=== PATIENT | female | born 1995 | race Caucasian/White ===

== ENCOUNTER 2020-06-29 12:13 | Emergency (ER) | payer MEDICAID, SELFPAY ==
--- NOTE | 2020-06-29 12:28 | W.ED.SKABFB ---
HPI - Skin/Abscess/Foreign Bdy General: Stated complaint: rash Time Seen by Provider: 06/29/20 12:22 Source: patient Mode of arrival: ambulatory Limitations: no limitations History of Present Illness: HPI narrative: 24-year-old female states she has had a rash over the last 2 days has rash to both arms. Other family members have the rash as well. States 3.. She denies any pain. MD complaint: rash Onset (ago): day(s) Associated symptoms: Deny chills, fever(s), nausea or vomiting Review of Systems Const: Denies: fever(s), chills, body aches or change in appetite Eyes: Denies: blurry vision or eye discomfort ENMT: Denies: throat pain or dental pain Card: Denies: chest pain Resp: Denies: dyspnea GI: Denies: abdominal pain, nausea, vomiting or diarrhea : Denies: dysuria Musc: Denies: neck pain or back pain Skin/Breast: Reports: rash Neuro: Denies: headache(s) Psych: Denies: depression Logan/Lymph: Denies: easy bruising All/Imm: Denies: urticaria Physical Exam Const: COMMON NORMALS: no acute distress HENMT: COMMON NORMALS: normocephalic and atraumatic HEAD & SCALP: normocephalic and atraumatic Eye: COMMON NORMALS: Equal, round and reactive pupils present PUPIL: Yes Equal, round and reactive pupils present Neck/C-Spine: COMMON NORMALS: supple Chest: COMMONS NORMALS: normal inspection of the chest Resp: COMMON NORMALS: normal respiratory effort Extremity: COMMON NORMALS: normal to inspection Psych: COMMON NORMALS: mental status grossly normal Skin: NARRATIVE SKIN EXAM: Pruritic rash to arms MDM - Skin/Abscess/Foreign Bdy MDM Narrative: Medical decision making narrative: Patient presents here with a rash will place on permethrin Discharge Plan Discharge Patient Disposition: Home Clinical Impression: Rash Condition: Stable Prescriptions: New permethrin 5 % cream 1 applic TOPICAL Q14D Qty: 60 RF: 0 Discharge Orders: Discharge Order (Routine); Ordered 06/29/20 Ordered By: Dayna Harris Discharge Diet: Advance as tolerated Discharge Activity: Resume usual activity Patient Instructions: Acute Rash (ED) Coding Level of Care Code ED Electrician Supervisor Airplane for Adarsh Hamlin
[2020-06-29 12:33] VITALS: BP 119/86; PULSE 104; RESP 16; TEMP 36.8; O2SAT 97; BMI 23.4
== END 2020-06-29 12:45 | disposition home or self-care (01) ==
LOC: ER 13:10
PROVIDERS: Emergency Provider Emergency Medicine
DX: R21 Rash and other nonspecific skin eruption (principal)
CPT/HCPCS: 12345; 99282

== ENCOUNTER → 2020-12-09 09:00 | Outpatient (BNVA) | payer MEDICAID, SELFPAY | PROVIDERS: Visit Provider Obstetrics & Gynecology | DX: N75.1 Abscess of Bartholin's gland (principal) | CPT/HCPCS: 87070 ==

== ENCOUNTER → 2020-12-23 14:10 | Outpatient (BNVA) | payer MEDICAID, SELFPAY | PROVIDERS: Visit Provider Obstetrics & Gynecology | DX: Z12.4 Encounter for screening for malignant neoplasm of cervix (principal) | CPT/HCPCS: 88175 ==

== ENCOUNTER → 2020-12-30 14:13 | Outpatient (BNVA) | payer MEDICAID, SELFPAY | PROVIDERS: Visit Provider Obstetrics & Gynecology | DX: R87.612 Low grade squamous intraepithelial lesion on cytologic smear of cervix (LGSIL) (principal) | CPT/HCPCS: 88305 ==

== ENCOUNTER 2021-05-23 18:59 | Emergency (ER) | payer MEDICAID, SELFPAY ==
[2021-05-23 19:12] VITALS: BP 122/82; PULSE 86; RESP 16; TEMP 37.2; O2SAT 98; BMI 25.7
[2021-05-23] MEDS: HYDROcodone-acetaminophen 5-325 mg Tablet 1 TAB PO (19:35)
[2021-05-23 19:57] VITALS: BP 122/86; PULSE 75; RESP 16; TEMP 36.9; O2SAT 98
--- NOTE | 2021-05-23 20:00 | ED_ITS ---
HPI - Wound/Laceration General: Chief Complaint: Wound/Laceration Stated Complaint: Barklin Cyst on her [place] Time Seen by Provider: 05/23/21 19:26 History of Present Illness: HPI narrative: Patient complains of a cyst on her right labia times few days worsening symptoms very painful. History have been I&D done on this area not too long ago. Onset (ago): day(s) Associated symptoms: Denies chills or fever(s) Review of Systems Const: Denies: fever(s) or chills : Reports: other (Pain labia x2 days) Skin/Breast: Reports: erythema, skin tenderness and skin swelling PFSH ED PFSH: Medical History Bartholin's gland abscess Family History Grandmother CAD (coronary artery disease) maternal Hyperlipidemia maternal Hypertension maternal Mother Asthma Family/Other Asthma Maternal aunt Denies family history of Diabetes Clotting disorder Chronic kidney disease (CKD) Anesthesia complication Family history of thyroid problem Bleeding disorder Cancer Social History Smoking and tobacco status: never smoked Alcohol intake: current Alcohol intake frequency: few times a month Physical Exam Const: COMMON NORMALS: no acute distress GENERAL APPEARANCE: cooperative : EXTERNAL FEMALE EXAM: Yes Bartholin cyst Bartholin's cyst laterality: right (Prepped area with Betadine injected lidocaine No. 11 blade incised and drained large amount of pus) Psych: COMMON NORMALS: mental status grossly normal Procedures Abscess I/D Site: bartholin's gland Side (if applicable): right Local Anesthetic: lidocaine 1% Amount of anesthesia used (mL): 1 Technique: incised with #11 blade Irrigation: No Packing used?: none Course Vital Signs: Vital signs: Vital Signs Temperature 98.4 F 05/23/21 19:57 Pulse Rate 75 05/23/21 19:57 Respiratory Rate 16 05/23/21 19:57 Blood Pressure 122/86 05/23/21 19:57 Pulse Oximetry 98 05/23/21 19:57 Discharge Plan Discharge Patient Disposition: Home Clinical Impression: Bartholin's gland abscess Condition: Stable Prescriptions: New clindamycin HCl 300 mg capsule 300 mg PO Q8H 7 Days Qty: 21 RF: 0 No Action lidocaine-epinephrine 2 %-1:100,000 solution 1 ml Infiltration ONCE Qty: 1 RF: 0 sulfamethoxazole-trimethoprim [Bactrim DS] 800-160 mg tablet 1 tab PO BID 10 Days Qty: 20 RF: 0 Discharge Orders: Discharge ED (Routine); Ordered 05/23/21 Ordered By: Nirmal Dominguez Discharge Diet: Usual diet Discharge Activity: Increase activity as tolerated Patient Instructions: Bartholin Cyst (ED), Incision and Drainage (ED), Opioid Safety Activity Restrictions/Additional Instructions: Follow-up with medical provider as directed. Take medications as prescribed. Return to the ER or your medical provider if condition worsens. Please read and understand discharge instructions. If any questions ask please. Follow-up MARCELLA Roberts as scheduled this week. Can apply moist heat to help with drainage. Coding Level of Care Code ED Plant Controller for Adarsh Hamlin
[2021-05-23] MEDS: lidocaine 1% INJ 20 mL INTRADERMA (20:01)
[2021-05-23] MEDS: clindamycin 150 mg Capsule 300 MG PO (20:03)
== END 2021-05-23 20:08 | disposition home or self-care (01) ==
PROVIDERS: Emergency Provider Nurse Practitioner Family
DX: N75.1 Abscess of Bartholin's gland (principal)
CPT/HCPCS: 56420; 87070; 87075; 87205; 99283

== ENCOUNTER → 2021-06-12 10:04 | Outpatient (BNVA) | payer MEDICAID, SELFPAY | PROVIDERS: Visit Provider Obstetrics & Gynecology | DX: Z20.822 Contact with and (suspected) exposure to COVID-19 (principal); N75.1 Abscess of Bartholin's gland | CPT/HCPCS: 87635 ==

== ENCOUNTER 2021-06-16 08:13 | Day surgery (SDC) | payer MEDICAID, SELFPAY ==
[2021-06-15 15:17] VITALS: BMI 25.7
[2021-06-16] VITALS (7 sets, daily range): BP systolic 98–120; BP diastolic 61–73; PULSE 54–83; RESP 8–19; TEMP 36.7–37.1; O2SAT 99–100
[2021-06-16 08:32] LABS: OR HCG Qualitative Urine Negative (Negative)
[2021-06-16] MEDS: sodium chloride 0.9% 1,000 ML 30 ML IV (09:02)
--- NOTE | 2021-06-16 09:41 | ANES.PREANE2 ---
Pre-Anesthetic Assessment Pre-Anesthetic Assessment: Height/Weight: Height 1.63 m Weight 68.039 kg Temp Pulse Resp BP Pulse Ox 98.7 F 60 16 119/68 100 06/16/21 08:30 06/16/21 08:30 06/16/21 08:30 06/16/21 08:30 06/16/21 08:30 Preop Diagnosis: recurrent bartholin's abscess Proposed Procedure: Operation Date: 06/16/21 09:40 Proposed Procedures p Marsupialization of Bartholins gland 43051 N78.1(Not Applicable) - Michelle Smith MD Was Beta Dinora taken within 24 hours: N/A Was Clonidine taken within 24 hours: N/A Last intake: Intake Last Liquid Date 06/15/21 Last Liquid Time 18:00 Last Solid Date 06/15/21 Last Solid Time 21:00 Social: Social History: No alcohol and No tobacco Exam: Pre-Anes Outpt Exam: alert, oriented x 3, clear to auscultation bilaterally and regular rate & rhythm Airway: Submandibular: WNL Cervical ROM: WNL MP: 2 Dentition: Full History/ROS: No significant history except as noted Neuropsych: Neuropsych: Anxiety and Depression Anesthetic Plan: ASA status: 2 Anesthesia: General Risk of > 500 ml blood loss (7ml/kg in children): No Meds/Allergies Current Medications: Current Medications Generic Name Dose Route Start Last Admin Trade Name Freq PRN Reason Stop Dose Admin Sodium Chloride 1,000 mls @ 30 ml s/hr 06/16/21 08:30 06/16/21 09:02 Sodium Chloride 0.9% IV 06/17/21 08:29 30 mls/hr .Q24H YOHAN Administration PFSH Anesthesia PFSH: Medical History Anxiety and depression Asthma Bartholin's gland abscess No pertinent past medical history neghx: htn,dm,thyroid,dvt/pe PCP: Dr. Gregory Surgical History H/O tubal ligation (~2015) 08/08/2016 Hx of breast augmentation (~03/20/21) Injury of nasal cavity (~2015) Family History Grandmother Hyperlipidemia maternal Hypertension maternal Mother Asthma Family/Other Asthma Maternal aunt Denies family history of Colon cancer Ovarian cancer Diabetes Breast cancer Family history of thyroid problem Uterine cancer Stroke Female Reproductive History: Date of last menstrual period: 05/20/21 Data Anesthesia Other Labs: Laboratory Results - last 48 hr 06/16/21 08:30 Urine HCG, Qual Negative Cardiac Studies: No Data to Display
--- NOTE | 2021-06-16 10:48 | W.PM.OPSUD ---
Surgery/Procedure H&P Update DATE OF PROCEDURE: June 16, 2021 DATE H&P PERFORMED: 06/12/21 H&P UPDATE INFORMATION: I have reviewed H&P completed within last 30 days, I have examined patient prior to procedure and No changes to prior documentation PREOP DIAGNOSIS: recurrent bartholin's abscess PLANNED PROCEDURE: Operation Date: 06/16/21 09:40 Proposed Procedures p Marsupialization of Bartholins gland 89751 N78.1(Not Applicable) - Michelle Smith MD
--- NOTE | 2021-06-16 11:31 | PM.OP ---
Operative Report Date of procedure: June 16, 2021 Pre-op Diagnosis: recurrent bartholin's abscess Post-op diagnosis: same Post-op Findings: normal appearing bilateral bartholin's glands. Two separate scars over right gland Procedure Done: marsupializtion of right bartholin's gland Specimens removed/disposition: none Pathology: none sent Surgeon: Michelle Smith Anesthesia: MAC Estimated blood loss (mL): 25 IV fluids (mL): 700 Complications: none Findings: normal appearing bartholin's area bilaterally. previous incision scars over right Condition: stable Disposition: PACU Procedure: Patient was taken to the operating room where monitored anesthesia was administered and found to be adequate. She was prepped and draped in the normal sterile fashion in the dorsal lithotomy position in [facility]. A right angle retractor was placed into the vagina and the right labia grasped with an Allis clamp. A T-incision was made over a previous incision. The leaflets of the T were then tacked back on themselves with 2-0 Vicryl. There was good hemostasis. There was a void in the middle of the suture able to be palpated with the pickups. All instruments were removed. The patient tolerated the procedure well. Sponge lap and needle counts were correct x3. She was taken to the recovery room in stable condition.
--- NOTE | 2021-06-16 11:43 | PM.DCS ---
Discharge Providers Date of Discharge: June 16, 2021 Attending Provider at Discharge: Michelle Smith MD Primary Care Provider: Lui Gregory MD Diagnoses at Discharge Discharge Diagnosis (1) Postoperative state: Status: Acute Reason for Visit Reason for Visit: Marsupialization of Bartholins gland Hospital Course Hospital Course The patient was admitted for surgery. She did well postoperatively and was ready for discharge Discharge Data Data Completed and Pending: Labs from last 24 hours 06/16/21 08:30 Urine HCG, Qual Negative Vitals: Last Vital Signs Temp 98.1 F 06/16/21 11:37 Pulse 57 L 06/16/21 11:40 Resp 19 H 06/16/21 11:40 BP 107/62 06/16/21 11:40 Pulse Ox 100 06/16/21 11:40 Discharge Plan Discharge Patient Disposition: Home Condition: Stable Prescriptions: Continued No Known Home Medications RF: 0 Discharge Orders: Discharge Order (Routine); Ordered 06/16/21 Ordered By: Michelle Smith Discharge Attestations Time Spent in Discharge Care*: less than 30 min Quality Metrics Clinical Quality Measures During this hospital stay, did patient experience: None Coding Level of Care Code Acute Chg FW DC note Diagnoses Postoperative state Z98.890
--- NOTE | 2021-06-16 16:00 | ANE.PACU2 ---
Inpatient post-anesthesia follow up: Airway intact: Yes Vital signs: Temperature 98.1 F Pulse Rate 64 Respiratory Rate 16 Blood Pressure 105/73 Pulse Oximetry 100 Oxygen Delivery Me thod Room Air Oxygen Flow Rate Fraction of Inspir ed Oxygen Hydration adequate: Yes Nausea and vomiting: No Pain level: 2 Mental status: Baseline
== END 2021-06-16 12:19 | disposition home or self-care (01) ==
PROVIDERS: PCP Family Medicine; Visit Provider Obstetrics & Gynecology
PROC: (CPT 56740; principal; 2021-06-16 09:30)
DX: N75.0 Cyst of Bartholin's gland (principal)
CPT/HCPCS: 56440; 81025; 84703; J0690; J1100; J2250; J2405; J2704; J3010; J7030

== ENCOUNTER 2021-07-14 23:39 | Emergency (ER) | payer MEDICAID, SELFPAY ==
[2021-07-14 23:52] VITALS: BP 128/90; PULSE 84; RESP 16; TEMP 37.3; O2SAT 99; BMI 26.2
[2021-07-15] MEDS: lidocaine 1% INJ 20 mL INTRADERMA (00:58)
--- NOTE | 2021-07-15 01:12 | W.ED.SKABFB ---
HPI - Skin/Abscess/Foreign Bdy General: Chief complaint: Skin/Abscess/Foreign Body Stated complaint: Batholin cyst inflammed Time Seen by Provider: 07/15/21 00:37 History of Present Illness: HPI narrative: Patient presents with tenderness right labia area. Patient has a history of abscess down that area. Just had a recent surgical procedure done. Patient also like to be tested for chlamydia. Has no symptoms but did have a different partner less than a year ago. MD complaint: abscess/boil Onset (ago): day(s) Location: genitals Severity: moderate Severity scale (1-10): 4 Quality: burning and aching Pain Consistency: constant Relieving factors: none Context: none Associated symptoms: Reports no associated symptoms; Deny chills or fever(s) Review of Systems Const: Denies: fever(s) or chills Resp: Denies: dyspnea : Denies: flank pain, difficulty voiding, dysuria, urinary urgency, urinary hesitancy, genital lesions, genital pruritis, vaginal odor or vaginal bleeding Skin/Breast: Reports: erythema, skin tenderness and skin swelling Psych: Denies: depression PFSH ED PFSH: Medical History Anxiety and depression Asthma Bartholin's gland abscess No pertinent past medical history neghx: htn,dm,thyroid,dvt/pe PCP: Dr. Gregory Surgical History H/O tubal ligation (~2015) 08/08/2016 Hx of breast augmentation (~03/20/21) Injury of nasal cavity (~2015) Family History Grandmother Hyperlipidemia maternal Hypertension maternal Mother Asthma Family/Other Asthma Maternal aunt Denies family history of Colon cancer Ovarian cancer Diabetes Breast cancer Family history of thyroid problem Uterine cancer Stroke Female Reproductive History: Date of last menstrual period: 06/23/21 Physical Exam Const: COMMON NORMALS: no acute distress Resp: COMMON NORMALS: normal respiratory effort : EXTERNAL FEMALE EXAM: Yes Bartholin cyst (Swelling redness tenderness I&D was done.) Bartholin's cyst laterality: right Procedures Abscess I/D Site: bartholin's gland Side (if applicable): right Local Anesthetic: lidocaine 1% Amount of anesthesia used (mL): 3 Technique: incised with #11 blade Amount of fluid expressed (mL): 2 Irrigation: Yes Packing used?: none Course Vital Signs: Vital signs: Vital Signs Temperature 99.2 F 07/14/21 23:52 Pulse Rate 84 07/14/21 23:52 Respiratory Rate 16 07/14/21 23:52 Blood Pressure 128/90 07/14/21 23:52 Pulse Oximetry 99 07/14/21 23:52 Discharge Plan Discharge Patient Disposition: Home Clinical Impression: Bartholin's gland abscess Condition: Stable Prescriptions: New clindamycin HCl 300 mg capsule 300 mg PO Q8H 7 Days Qty: 21 RF: 0 hydrocodone-acetaminophen 5-325 mg tablet 1 tab PO TID PRN (Reason: pain) Qty: 14 RF: 0 Discharge Orders: Discharge ED (Routine); Ordered 07/15/21 Ordered By: Nirmal Dominguez Discharge Diet: Usual diet Discharge Activity: Increase activity as tolerated Patient Instructions: Abscess Incision and Drainage (ED) Activity Restrictions/Additional Instructions: Follow-up with medical provider as directed. Take medications as prescribed. Return to the ER or your medical provider if condition worsens. Please read and understand discharge instructions. If any questions ask please. Call for your lab results in 24 to 48 hours. Coding Level of Care Code ED Conduit Installer for Adarsh Hamlin
[2021-07-15] MEDS: clindamycin 150 mg Capsule 300 MG PO (01:13)
[2021-07-15] MEDS: HYDROcodone-acetaminophen 7.5-325 mg Tablet 2 TAB PO (01:14)
== END 2021-07-15 01:16 | disposition home or self-care (01) ==
PROVIDERS: Emergency Provider Nurse Practitioner Family
DX: N75.1 Abscess of Bartholin's gland (principal)
CPT/HCPCS: 56420; 87491; 87591; 99283

== ENCOUNTER 2021-09-20 21:39 | Emergency (ER) | payer MEDICAID, SELFPAY ==
[2021-09-20 21:47] VITALS: BP 130/80; PULSE 83; RESP 16; TEMP 36.3; O2SAT 99; BMI 26.6
--- NOTE | 2021-09-20 23:27 | W.ED.FEMALGU ---
HPI - Female Genitourinary General: Chief complaint: Urogenital-Female Stated complaint: Bartholin Cyst Time Seen by Provider: 09/20/21 23:27 History of Present Illness: HPI Narrative: 26-year-old comes in with a Bartholin cyst. Patient reports that she has had six episodes of abscesses to the Bartholin cyst. Patient did have a marsupialization treatment for it but has had two episodes since procedure. Patient appears well. Patient appears no acute distress. Patient denies any fever. Date of Last Menstrual Period: 06/23/21 Review of Systems General: Reports: 10 or more systems reviewed and unremarkable except in HPI and below Skin/Breast: Reports: other (Labial abscess) PFSH ED PFSH: Medical History Anxiety and depression Asthma Bartholin's gland abscess No pertinent past medical history neghx: htn,dm,thyroid,dvt/pe PCP: Dr. Gregory Surgical History H/O tubal ligation (~2015) 08/08/2016 Hx of breast augmentation (~03/20/21) Injury of nasal cavity (~2015) Family History Grandmother Hyperlipidemia maternal Hypertension maternal Mother Asthma Family/Other Asthma Maternal aunt Denies family history of Colon cancer Ovarian cancer Diabetes Breast cancer Family history of thyroid problem Uterine cancer Stroke Female Reproductive History: Date of last menstrual period: 06/23/21 Physical Exam Const: COMMON NORMALS: no acute distress and patient oriented x3 GENERAL APPEARANCE: cooperative HENMT: COMMON NORMALS: normocephalic HEAD & SCALP: normal to inspection and normocephalic Eye: GENERAL EYE: appearance normal, both eyes and all related structures Neck/C-Spine: COMMON NORMALS: full ROM Lymph: LYMPHATIC: no lymphadenopathy noted Chest: COMMONS NORMALS: normal inspection of the chest Resp: COMMON NORMALS: normal respiratory effort EFFORT & INSPECTION: Yes able to speak in complete sentences Cardio: COMMON NORMALS: regular rate and regular rhythm RATE: regular rate RHYTHM: regular rhythm GI: COMMON NORMALS: non-tender : EXTERNAL FEMALE EXAM: Yes Bartholin cyst Bartholin's cyst laterality: right (1-1/2 cm palpable mass to the right inner labia) Back/Pelvis: COMMON NORMALS: thoracic and lumbar spine normal to inspection Extremity: COMMON NORMALS: normal to inspection Neuro: COMMON NORMALS: patient oriented x3 and moves all extremities Psych: COMMON NORMALS: mental status grossly normal and cooperative Skin: COMMON NORMALS: no rashes or lesions noted GENERAL SKIN EXAM: no rashes or lesions noted Procedures Abscess I/D Site: bartholin's gland Side (if applicable): right Local Anesthetic: lidocaine 1% Amount of anesthesia used (mL): 3 Technique: incised with #11 blade Amount of fluid expressed (mL): 2 Irrigation: Yes Packing used?: none Complications: bleeding Course Vital Signs: Vital signs: Vital Signs Temperature 97.4 F L 09/20/21 21:47 Pulse Rate 83 09/20/21 21:47 Respiratory Rate 16 09/20/21 21:47 Blood Pressure 130/80 09/20/21 21:47 Pulse Oximetry 99 09/20/21 21:47 MDM - Female MDM Narrative: Medical decision making narrative: Patient came in for Bartholin's gland abscess. On exam patient has a 1 to 2 cm palpable mass to the right inner labia. No significant induration is noted to the tissue. Differential diagnosis includes but not limited to abscess, Bartholin cyst abscess, cellulitis. No signs of significant illnesses noted. Incision and drainage was completed of the abscess with moderate amount of purulent fluid. Patient was given clindamycin 300 mg orally in the ER and will be continued on it for the next 7 days. Recommended patient follow back up with NEUROLOGY TECHNOLOGIST for further instruction. Discharge Plan Discharge Patient Disposition: Home Clinical Impression: Bartholin's gland abscess Condition: Stable Prescriptions: New clindamycin HCl 150 mg capsule 150 mg PO Q8H 7 Days Qty: 21 RF: 0 Discharge Orders: Discharge ED (Routine); Ordered 09/21/21 Ordered By: Juan Miguel Han Discharge Diet: Usual diet Discharge Activity: Increase activity as tolerated Patient Instructions: Incision and Drainage (ED), Opioid Safety Activity Restrictions/Additional Instructions: Warm moist packs to the area. Drink plenty of water with antibiotic. Follow-up with NEUROLOGY TECHNOLOGIST for further instruction. Return to the ER for high fever, worsening symptoms, or new concerns. Coding Level of Care Code ED Director Of Safety And Security for Adarsh Hamlin
[2021-09-21] MEDS: clindamycin 150 mg Capsule 300 MG PO (00:29)
[2021-09-21 00:30] VITALS: PULSE 78; RESP 16; O2SAT 97
== END 2021-09-21 00:33 | disposition home or self-care (01) ==
PROVIDERS: Emergency Provider Nurse Practitioner Family
DX: N75.1 Abscess of Bartholin's gland (principal)
CPT/HCPCS: 99283

== ENCOUNTER → 2021-10-19 10:29 | Outpatient (BNVA) | payer MEDICAID, SELFPAY | PROVIDERS: Visit Provider Obstetrics & Gynecology | DX: N75.1 Abscess of Bartholin's gland (principal) | CPT/HCPCS: 87070; 87205 ==

== ENCOUNTER 2022-02-26 21:03 | Emergency (ER) | payer MEDICAID, SELFPAY ==
[2022-02-26 21:13] VITALS: BP 121/75; PULSE 82; RESP 16; TEMP 37.1; O2SAT 98; BMI 25.2
--- NOTE | 2022-02-26 23:24 | ED_ITS ---
HPI - Skin/Abscess/Foreign Bdy General: Chief complaint: Skin/Abscess/Foreign Body Stated complaint: Bartholyn Cyst Time Seen by Provider: 02/26/22 22:44 History of Present Illness: Patient has what she says to begin at one of her abscess is getting down in her right labial area. Says that is been sore couple days she has not take any antibiotics. Presents here for I&D. Associated symptoms: Deny chills, fever(s), nausea or vomiting Review of Systems Const: Denies: fever(s), chills or body aches Eyes: Denies: eye discomfort ENMT: Denies: throat pain Card: Denies: chest pain Resp: Denies: dyspnea GI: Denies: abdominal pain, nausea or vomiting : Reports: other (Tenderness to right labia times couple days. History of multiple I&D's on ) Skin/Breast: Denies: rash Neuro: Denies: headache(s) Psych: Denies: depression or suicidal ideation PFS ED PFSH: Medical History Anxiety and depression Asthma Bartholin's gland abscess No pertinent past medical history neghx: htn,dm,thyroid,dvt/pe PCP: Dr. Gregory Surgical History H/O tubal ligation (~2015) 08/08/2016 Hx of breast augmentation (~03/20/21) Injury of nasal cavity (~2015) Family History Grandmother Hyperlipidemia maternal Hypertension maternal Mother Asthma Family/Other Asthma Maternal aunt Denies family history of Colon cancer Ovarian cancer Diabetes Breast cancer Family history of thyroid problem Uterine cancer Stroke Female Reproductive History: Date of last menstrual period: 02/11/22 Physical Exam Const: COMMON NORMALS: no acute distress, patient oriented x3 and alert HENMT: COMMON NORMALS: normocephalic and external ears normal HEAD & SCALP: normocephalic EXTERNAL EAR: Yes external ears normal Eye: COMMON NORMALS: EOMs intact bilaterally Neck/C-Spine: COMMON NORMALS: no JVD Resp: COMMON NORMALS: normal respiratory effort and No use of accessory muscles Cardio: COMMON NORMALS: no JVD GI: INSPECTION: Yes normal to inspection : OTHER: I could palpate a small pea-sized lump lower aspect right labia. No real inflammation noted. Patient want me to go ahead and proceed with I&D. When then numbed up up with 1% lidocaine made a stab incision #11 blade into lump area and I did not get any pustular or cystic contents back. I manipulated area and opened it and still no contents. Procedure stopped. Extremity: COMMON NORMALS: normal to inspection and full ROM Neuro: COMMON NORMALS: patient oriented x3 SENSORIUM/ORIENTATION: Yes alert Psych: COMMON NORMALS: mental status grossly normal Skin: COMMON NORMALS: no rashes or lesions noted GENERAL SKIN EXAM: no rashes or lesions noted Course Vital Signs: Vital signs: Vital Signs Temperature 98.7 F 02/26/22 21:13 Pulse Rate 82 02/26/22 21:13 Respiratory Rate 16 02/26/22 21:13 Blood Pressure 121/75 02/26/22 21:13 Pulse Oximetry 98 02/26/22 21:13 MDM - Skin/Abscess/Foreign Bdy Medicial Decision Making History labial abscess encouraged follow-up with PRECISION FARMING SPECIALIST. And also take antibiotics that she has at home. Discharge Plan Discharge Patient Disposition: Home Clinical Impression: Bartholin's gland abscess Condition: Stable Prescriptions: No Action clindamycin HCl 150 mg capsule 150 mg PO Q8H 0RF Discharge Orders: Discharge ED (Routine); Ordered 02/26/22 Ordered By: Nirmal Dominguez Discharge Diet: Usual diet Activity Restrictions/Additional Instructions: Epson salt and moist soaks to the area. Take antibiotics that you have at home. Follow-up here Dr. Smith's office are provided of your choice if problem continues. Coding Level of Care Code ED Coal Pulverizing Operator for Adarsh Hamlin
--- NOTE | 2022-02-27 00:25 | W.ED.SKABFB ---
HPI - Skin/Abscess/Foreign Bdy General: Chief complaint: Skin/Abscess/Foreign Body Stated complaint: Bartholyn Cyst Time Seen by Provider: 02/26/22 22:44 History of Present Illness: Appears to be an extra chart that was open. [facility] ED PFSH: Medical History Anxiety and depression Asthma Bartholin's gland abscess No pertinent past medical history neghx: htn,dm,thyroid,dvt/pe PCP: Dr. Gregory Surgical History H/O tubal ligation (~2015) 08/08/2016 Hx of breast augmentation (~03/20/21) Injury of nasal cavity (~2015) Family History Grandmother Hyperlipidemia maternal Hypertension maternal Mother Asthma Family/Other Asthma Maternal aunt Denies family history of Colon cancer Ovarian cancer Diabetes Breast cancer Family history of thyroid problem Uterine cancer Stroke Female Reproductive History: Date of last menstrual period: 02/11/22 Course Vital Signs: Vital signs: Vital Signs Temperature 98.7 F 02/26/22 21:13 Pulse Rate 82 02/26/22 21:13 Respiratory Rate 16 02/26/22 21:13 Blood Pressure 121/75 02/26/22 21:13 Pulse Oximetry 98 02/26/22 21:13 MDM - Skin/Abscess/Foreign Bdy Medicial Decision Making This appears to be an extra chart that was open. Discharge Plan Discharge Patient Disposition: Home Clinical Impression: Bartholin's gland abscess Condition: Stable Prescriptions: No Action clindamycin HCl 150 mg capsule 150 mg PO Q8H 0RF hydrocodone-acetaminophen 5-325 mg tablet 1 tab PO TID PRN (Reason: pain) Qty: 14 0RF Discharge Orders: Discharge ED (Routine); Ordered 02/26/22 Ordered By: Nirmal Dominguez Discharge Diet: Usual diet Activity Restrictions/Additional Instructions: Epson salt and moist soaks to the area. Take antibiotics that you have at home. Follow-up here Dr. Smith's office are provided of your choice if problem continues. Coding Level of Care Code ED Pediatric Occupational Therapist for Adarsh Hamlin
== END 2022-02-26 23:33 | disposition home or self-care (01) ==
PROVIDERS: Emergency Provider Nurse Practitioner Family
DX: N75.1 Abscess of Bartholin's gland (principal)
CPT/HCPCS: 99282

== ENCOUNTER 2022-02-27 18:54 | Emergency (ER) | payer MEDICAID, SELFPAY ==
[2022-02-27 19:18] VITALS: BP 143/87; PULSE 89; RESP 16; TEMP 36.7; O2SAT 99; BMI 25.2
--- NOTE | 2022-02-27 19:55 | W.ED.SKABFB ---
HPI - Skin/Abscess/Foreign Bdy General: Chief complaint: Skin/Abscess/Foreign Body Stated complaint: bartholin cyst Time Seen by Provider: 02/27/22 19:49 History of Present Illness: Patient presents with increasing pain in her right labia area. Patient was seen in ER last night and I&D was done without any significant return of pustular material. Patient said it got worse today she went to [facility] and they said it did not look bad enough to do an I&D. Gave her a different antibiotic which she did not fill. Patient comes here nights and she like to have it read lanced because it is worse. Associated symptoms: Deny chills, fever(s), nausea or vomiting Review of Systems Const: Denies: fever(s), chills or body aches Eyes: Denies: eye discomfort ENMT: Denies: throat pain Card: Denies: chest pain Resp: Denies: dyspnea GI: Denies: abdominal pain, nausea or vomiting : Reports: other (Bartholin gland abscess right labia chronic has had 8 I&D's done.) Skin/Breast: Denies: rash Neuro: Denies: headache(s) Psych: Denies: depression or suicidal ideation PFSH ED PFSH: Medical History Anxiety and depression Asthma Bartholin's gland abscess No pertinent past medical history neghx: htn,dm,thyroid,dvt/pe PCP: Dr. Gregory Surgical History H/O tubal ligation (~2015) 08/08/2016 Hx of breast augmentation (~03/20/21) Injury of nasal cavity (~2015) Family History Grandmother Hyperlipidemia maternal Hypertension maternal Mother Asthma Family/Other Asthma Maternal aunt Denies family history of Colon cancer Ovarian cancer Diabetes Breast cancer Family history of thyroid problem Uterine cancer Stroke Female Reproductive History: Date of last menstrual period: 02/11/22 Physical Exam Const: COMMON NORMALS: no acute distress and patient oriented x3 Resp: COMMON NORMALS: normal respiratory effort : OTHER: Right labia inner aspect has a larger cyst than yesterday. Anesthetized with lidocaine. Using #11 scalpel and drained a large amount of pus approximately 3 mils out this time. Patient tolerated procedure well. Neuro: COMMON NORMALS: patient oriented x3 Procedures Abscess I/D Site: bartholin's gland Side (if applicable): right Local Anesthetic: lidocaine 1% Amount of anesthesia used (mL): 1 Technique: incised with #11 blade Amount of fluid expressed (mL): 3 Irrigation: Yes Packing used?: none Course Vital Signs: Vital signs: Vital Signs Temperature 98.1 F 02/27/22 19:18 Pulse Rate 75 02/27/22 21:07 Respiratory Rate 18 02/27/22 21:07 Blood Pressure 112/69 02/27/22 21:07 Pulse Oximetry 99 02/27/22 21:07 MDM - Skin/Abscess/Foreign Bdy Medicial Decision Making Allen gland abscess with I&D done. Patient already on antibiotics. Pain control was provided. Follow-up with TRANSACTION ADVISORY SERVICES MANAGER. Discharge Plan Discharge Patient Disposition: Home Clinical Impression: Bartholin's gland abscess Condition: Stable Prescriptions: New hydrocodone-acetaminophen 5-325 mg tablet 1 tab PO TID PRN (Reason: pain) Qty: 14 0RF No Action clindamycin HCl 150 mg capsule 150 mg PO Q8H 0RF Discharge Orders: Discharge ED (Routine); Ordered 02/27/22 Ordered By: Nirmal Dominguez Discharge Diet: Usual diet Discharge Activity: Increase activity as tolerated Patient Instructions: Bartholin Cyst (ED), Incision and Drainage (ED) Activity Restrictions/Additional Instructions: Follow-up with medical provider as directed. Take medications as prescribed. Return to the ER or your medical provider if condition worsens. Please read and understand discharge instructions. If any questions ask please. Apply moist heat to help with drainage. Take antibiotics that you have at home. Coding Level of Care Code ED Product Safety Specialist for Adarsh Hamlin
[2022-02-27 20:00] VITALS: BP 107/70; PULSE 69; RESP 18; O2SAT 99
[2022-02-27 20:30] VITALS: BP 113/68; PULSE 66; RESP 18; O2SAT 99
[2022-02-27] MEDS: HYDROcodone-acetaminophen 5-325 mg Tablet 1 TAB PO ×2 (20:47)
[2022-02-27 21:07] VITALS: BP 112/69; PULSE 75; RESP 18; O2SAT 99
== END 2022-02-27 21:07 | disposition home or self-care (01) ==
PROVIDERS: Emergency Provider Nurse Practitioner Family
DX: N75.0 Cyst of Bartholin's gland (principal)
CPT/HCPCS: 56420; 87070; 99283

== ENCOUNTER 2023-03-17 07:37 | Inpatient (IN) | payer MEDICAID, SELFPAY ==
[2023-03-17 07:43] VITALS: BP 119/74; PULSE 58; TEMP 37; O2SAT 100; BMI 25.4
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
[2023-03-17 08:09] VITALS: RESP 16
[2023-03-17 08:15] VITALS: BP 100/64; PULSE 60; RESP 18; O2SAT 100
--- NOTE | 2023-03-17 08:22 | PC.NURSE ---
Nurse received pt from charge nurse after she triaged pt and had pt placed in green scrubs. Pt is calm and cooperative with staff. Pt's significant other is at bedside with her and is supportive. PSA at bedside as well. Pt states she cannot void at this time for a urine specimen - but will let us know.
[2023-03-17 08:49] LABS: Basophils # 0.1 10^3/uL (0.0-0.1); Eosinophils # 0.1 10^3/uL (0.0-0.8); Eosinophils % 1.9 %; Hematocrit 41.3 % (37.0-47.0); Hemoglobin 12.9 g/dL (11.5-15.3); Lymphocytes % 44.8 %; Mean Corpuscular HGB Conc 31.2 g/dL (30.0-36.0); Mean Corpuscular Hemoglobin 28.5 pg (28.0-34.0); Mean Corpuscular Volume 91.4 fl (81-99); Monocytes # 0.6 10^3/uL (0.2-0.9); Monocytes % 9.1 %; Neutrophils # 2.89 10^3/uL (1.8-7.7); Neutrophils % 43.1 %; Nucleated Red Blood Cells % 0 %; Platelet Count 191 10^3/cmm (130-400); Red Blood Count 4.52 10^6/uL (4.1-5.3); Red Cell Distribution Width 12.4 % (12.1-15.1); White Blood Count 6.7 10^3/uL (4.0-10.0)
[2023-03-17 09:00] LABS: Add Urine Microscopic? NO; Charge for UA Resulting for Rev
[2023-03-17 09:10] LABS: HCG Qualitative Urine. Negative (Negative); Urine Appearance Clear (CLEAR); Urine Color Yellow (Yellow)
[2023-03-17 09:11] LABS: Bilirubin Urine Neg (Negative); Blood Urine Neg (Negative); Glucose Urine UA Norm (Normal); Ketones Urine Negative (Negative); Leukocyte Esterase Urine Negative (Negative); Nitrate Urine Negative (Negative); Protein Urine Neg (Negative); Specific Gravity, Urine 1.015 (1.005-1.030); Urobilinogen Urine Norm (Negative); pH Urine 6.5 (5-7)
[2023-03-17 09:13] LABS: Alanine Aminotransferase < 5 U/L (0-33); Albumin Level 4.5 g/dL (3.5-5.2); Alkaline Phosphatase 42 U/L (35-105); Anion Gap 15.1 (5-19); Aspartate Amino Transferase 12 U/L (0-32); Blood Urea Nitrogen 8 mg/dL (6-20); Calcium 9.2 mg/dL (8.5-10.5); Carbon Dioxide 25 mmol/L (22-29); Chloride 105 mmol/L (98-107); Globulin 2.4 g/dL (1.3-4.6); Glucose 88 mg/dL (65-115); Osmolality Calculated 290 mOsm/kg (285-295); Potassium 4.1 mmol/L (3.5-5.1); Sodium 141 mmol/L (136-145); Total Bilirubin 0.5 mg/dL (0.15-1.2); Total Protein 6.9 g/dL (6.6-8.7)
[2023-03-17 09:14] LABS: Acetaminophen < 5.0 ug/mL (10-30)
[2023-03-17 09:21] LABS: Amphetamines Screen Urine Negative (Negative); Barbiturates Screen Urine Negative (Negative); Benzodiazepines Screen Urine Negative (Negative); Cocaine Screen Urine Negative (Negative); Opiate Screen Urine Negative (Negative); PCP Screen Urine Negative (Negative); THC Screen Urine Negative (Negative)
[2023-03-17 09:36] VITALS: BP 118/70; PULSE 60; RESP 16; TEMP 37; O2SAT 100
[2023-03-17 09:37] VITALS: BP 118/70; PULSE 60; RESP 16; TEMP 37; O2SAT 100
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
[2023-03-18] MEDS: methylphenidate 10 mg Tablet PO ×3 (10:03→15:08)
--- NOTE | 2023-03-18 15:50 | P.NPUPN_ITS ---
Subjective NPU Subjective: 27-year-old white female with a history of poor frustration tolerance irritability and ADHD along with oppositional defiant disorder as a child admitted with some vague suicidal ideation. The patient had endorsed having periods of depression. She had endorsed no significant improvement yet with the initiation of Ritalin to target ADHD symptoms. She had again supported extended history throughout her life of mood swings, frequent distractibility, difficulties with feeling on edge and fidgety. She is also reported a history of inattention and difficulties which shifting her attention. She had reported being very impatient and often avoided getting started on tasks that required sustained effort. She had reported having extreme problems with waiting her turn. She had reported some difficulties with falling asleep. She had reported having very little patience with taking her previously prescribed medications. She had denied any manic symptoms here today. Mental Status Exam MSE Comments: She was a casually dressed white female who appeared impatient and somewhat irritable on interview. She was alert and oriented to person place and time. Her gait appeared adequate. Her hygiene was fair. She was lying in bed and appeared alert and oriented to person place and time. There was no evidence of psychomotor agitation or psychomotor retardation. Her speech was normal regards to rate rhythm and prosody. There is no evidence of pressured speech. Her thought process was linear and logical. Her thought content revealed no evidence of homicidal or suicidal ideation. She did not appear to be responding internal stimuli. There is no evidence of delusional thinking. She did remain highly distracted and frequently interrupted the parts data writer of this note. Her attention span was poor. Her insight and judgment remain limited. Her impulse control appeared poor. Vitals/I&O/Wt Last Vital Signs Temp 98.6 F 03/17/23 09:37 Pulse 60 03/17/23 09:37 Resp 16 03/17/23 09:37 BP 118/70 03/17/23 09:37 Pulse Ox 100 03/17/23 09:37 O2 Del Method Room Air 03/17/23 09:47 Weight last 48 hrs Weight 67.132 kg Data NPU 03/17/23 08:41 03/17/23 08:41 A&P Assessment and plan (1) Depressive disorder: (2) ADHD (attention deficit hyperactivity disorder): (3) Impulse control disorder: Plan Is a 27-year-old white female with a past history of oppositional defiant disorder as a child who endorses symptoms largely suggestive of ADHD with a history of poor impulse control and occasional periods of depression. She did not appear to be manic but did appear to require some additional help particularly with psychiatric consultation as she would likely benefit from alternative medications to her recently prescribed Depakote and Seroquel. 1.? ? Engage? patient in individual ,milieu, and group therapy ?2. ? ASRS-V1.1 given-ADHD- ?3. ? TO-15 minute checks on the unit. 4. Increase Ritalin to 15mg tid beginning tommorow. Involuntary Hold Information 96 Hour Hold: 96 Hour Involuntary Admission: No Attestations NPU Medical Necessity Statement*: Inpatient hospitalization is medically necessary and deemed to be the clinically appropriate intervention at this time. We will monitor and initiate medications as clinically indicated. She will be in the hospital for over 2 midnights. Her likely length of his 3 to 5 days. Coding Level of Care Code Acute Code for [facility] Diagnoses Depressive disorder F32.A ADHD (attention deficit hyperactivity disorder) F90.9 Impulse control disorder F63.9
--- NOTE | 2023-03-18 23:28 | NPU.GN ---
[facility] Topic: wood crafting General Mood of Group pleasant, patient was able to complete her wooden model. Spoke of her children during group.
[2023-03-19] MEDS: methylphenidate 10 mg Tablet 15 MG PO ×2 (09:06→17:28)
--- NOTE | 2023-03-19 13:56 | P.NPUPN_ITS ---
Subjective NPU Subjective: 27-year-old white female with a history of poor frustration tolerance irritability and ADHD along with oppositional defiant disorder as a child admitted with some vague suicidal ideation. She had stated that she was feeling calmer with the increase in methylphenidate today. She had no problems with excess agitation. She had been polite and redirectable on the milieu. She had reported no sleep continuity disruption. She had not endorsed any feelings of hopelessness today. She reported adequate energy. She did not report having any racing thoughts at this time. She had also reported having some anxiety and worry but reported no worsening in anxiety with the addition of medication. Mental Status Exam MSE Comments: She was a casually dressed white female who appeared her stated age. There was no evidence of any tics tremors or any abnormal involuntary motor movements. She was alert and oriented to person place and time. Her gait appeared adequate. Her hygiene was fair. She was alert and oriented to person place and time. She was seen focusing on a crossword puzzle with evidence of improved attention span. She appeared less distracted on interview. She was calm and c ooperative with no evidence of psychomotor agitation or psychomotor retardation. Her speech was normal regards to rate rhythm and prosody. There is no evidence of pressured speech. Her thought process was linear and logical. Her thought content revealed no evidence of homicidal or suicidal ideation. She did not appear to be responding internal stimuli. There is no evidence of delusional thinking. She was less distracted and did not interrupt the customs entry writer of this note today. Her attention span was improved during the interview. Her insight and judgment remain limited. Her impulse control appeared slightly improved. Vitals/I&O/Wt Last Vital Signs Temp 98.6 F 03/17/23 09:37 Pulse 60 03/17/23 09:37 Resp 16 03/17/23 09:37 BP 118/70 03/17/23 09:37 Pulse Ox 100 03/17/23 09:37 O2 Del Method Room Air 03/17/23 09:47 Data NPU 03/17/23 08:41 03/17/23 08:41 A&P Assessment and plan (1) Depressive disorder: (2) ADHD (attention deficit hyperactivity disorder): (3) Impulse control disorder: Plan Is a 27-year-old white female with a past history of oppositional defiant disorder as a child who endorses symptoms largely suggestive of ADHD with a history of poor impulse control and occasional periods of depression. She did not appear to be manic but did appear to require some additional help particularly with psychiatric consultation as she would likely benefit from alternative medications to her recently prescribed Depakote and Seroquel. 1.? ? Engage? patient in individual ,milieu, and group therapy ?2. ? ASRS-V1.1 given-ADHD- ?3. ? TO-15 minute checks on the unit. 4. Continue Ritalin at 15mg tid beginning tommorow. Involuntary Hold Information 96 Hour Hold: 96 Hour Involuntary Admission: No Attestations NPU Medical Necessity Statement*: Inpatient hospitalization is medically necessary and deemed to be the clinically appropriate intervention at this time. We will monitor and initiate medications as clinically indicated. Her likely length of stay is 1-2 days. Coding Level of Care Code Acute Code for [facility] Fwd Diagnoses Depressive disorder F32.A ADHD (attention deficit hyperactivity disorder) F90.9 Impulse control disorder F63.9
[2023-03-19 20:10] VITALS: BP 127/80; PULSE 140; RESP 16; TEMP 36.9; O2SAT 100
[2023-03-19] MEDS: trazodone 50 mg Tablet PO (22:00)
--- NOTE | 2023-03-19 22:44 | NPU.GN ---
[facility] Topic: ceasar galarza General Mood of Group patient engaged in group while painting her jeep
[2023-03-20 06:00] VITALS: BP 102/70; PULSE 86; RESP 18; TEMP 36.6; O2SAT 95
[2023-03-20] MEDS: methylphenidate 10 mg Tablet 15 MG PO ×3 (08:29→15:42)
[2023-03-20 14:00] VITALS: BP 109/75; PULSE 90; RESP 16; TEMP 36.6; O2SAT 100
--- NOTE | 2023-03-20 16:11 | W.PM.NPUPNS ---
Subjective NPU Subjective: 27-year-old white female with a history of poor frustration tolerance irritability and ADHD along with oppositional defiant disorder as a child admitted with some vague suicidal ideation. She reported no thoughts of hurting herself or others. She had reported improved ability to stay on task. She had been calm and pleasant on the milieu. She stated feeling less stressed. She had endorsed some insomnia last night. She had been social and cooperative while easily being redirected. She had reported no change in appetite overall. Mental Status Exam MSE Comments: She was a casually dressed white female who appeared her stated age. There was no evidence of any abnormal involuntary motor movements tics or tremors appreciated. She was alert and oriented person place and time. She was calm and cooperative. She appeared less fidgety. Her mood was described as good. Her affect appeared bright and mood congruent. Her thought process was linear logical and goal-directed. Her thought content showed no evidence of active homicidal or suicidal ideation. Her attention span appeared improved. Her speech was normal in regards to rate rhythm and prosody. Her insight and judgment were improved. Her impulse control appeared markedly improved. Her recent and remote memory are grossly intact. Vitals/I&O/Wt Last Vital Signs Temp 97.8 F 03/20/23 14:00 Pulse 90 03/20/23 14:00 Resp 16 03/20/23 14:00 BP 109/75 03/20/23 14:00 Pulse Ox 100 03/20/23 14:00 O2 Del Method Room Air 03/20/23 14:00 Weight last 48 hrs Weight 66.678 kg Data NPU 03/17/23 08:41 03/17/23 08:41 A&P Assessment and plan (1) Depressive disorder: (2) ADHD (attention deficit hyperactivity disorder): (3) Impulse control disorder: Plan Is a 27-year-old white female with a past history of oppositional defiant disorder as a child who endorses symptoms largely suggestive of ADHD with a history of poor impulse control and occasional periods of depression. 1.? ?Engage? patient in individual ,milieu, and group therapy ?2. ? ASRS-V1.1 given-ADHD- ?3. ? TO-15 minute checks on the unit. 4. Continue Ritalin at 15mg tid with likely d/c tommorow. Involuntary Hold Information 96 Hour Hold: 96 Hour Involuntary Admission: No Attestations NPU Medical Necessity Statement*: Inpatient hospitalization is medically necessary and deemed to be the clinically appropriate intervention at this time. We will monitor and initiate medications as clinically indicated. Her likely length of stay is 1-2 days. Coding Level of Care Code Acute Code for [facility]wd Diagnoses Depressive disorder F32.A ADHD (attention deficit hyperactivity disorder) F90.9 Impulse control disorder F63.9
[2023-03-20 20:38] VITALS: BP 115/75; PULSE 88; RESP 16; TEMP 36.8; O2SAT 100
[2023-03-21 06:00] VITALS: RESP 16
[2023-03-21] MEDS: methylphenidate 10 mg Tablet 15 MG PO ×2 (08:57→12:21)
[2023-03-21 14:00] VITALS: BP 109/76; PULSE 120; RESP 16; TEMP 36.9; O2SAT 98
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
[2023-03-21 14:20] VITALS: BP 109/76; PULSE 120; RESP 16; TEMP 36.9; O2SAT 98
--- NOTE | 2023-03-21 15:14 | PC.NURSE ---
written discharge instruction disscussed and left with pt. pt stated understanding and compliance. pt left via pov and family.
== END 2023-03-21 15:15 | disposition home or self-care (01) | DRG 881 ==
LOC: ER 08:16 → NP 09:33
PROVIDERS: Admitting Provider Psychiatry & Neurology Psychiatry; Emergency Provider Family Medicine; PCP Family Medicine; Visit Provider Psychiatry & Neurology Psychiatry
DX: F32.A Depression, unspecified (principal); R45.851 Suicidal ideations; F41.9 Anxiety disorder, unspecified; J45.909 Unspecified asthma, uncomplicated; F90.9 Attention-deficit hyperactivity disorder, unspecified type; F63.9 Impulse disorder, unspecified; Z91.51 Personal history of suicidal behavior; Z62.810 Personal history of physical and sexual abuse in childhood
CPT/HCPCS: 36415; 80053; 80306; 80307; 81003; 81025; 85025; 97150; 97165; 99238; 99285

== ENCOUNTER → 2024-10-21 16:14 | Outpatient (BNVA) | payer MEDICAID, SELFPAY | PROVIDERS: PCP Family Medicine | DX: R39.9 Unspecified symptoms and signs involving the genitourinary system (principal) | CPT/HCPCS: 81000; 87086 ==

== ENCOUNTER → 2025-05-13 17:21 | Outpatient (BNVA) | payer MEDICAID, SELFPAY | PROVIDERS: PCP Family Medicine; Visit Provider Emergency Medicine | DX: M79.644 Pain in right finger(s) (principal); R39.9 Unspecified symptoms and signs involving the genitourinary system; Z20.2 Contact with and (suspected) exposure to infections with a predominantly sexual mode of transmission | CPT/HCPCS: 73140; 81000; 87086; 87491; 87591; 87661 ==